=== PATIENT | female | born 1960 | race Caucasian/White ===

== ENCOUNTER → 2018-04-19 | Day surgery (SDC) | payer OTHER ==
--- NOTE | 2018-04-19 10:53 | RAD REPORT ---
EXAM DESCRIPTION: Ultrasound-guided vacuum assisted right breast core biopsy CLINICAL HISTORY: Breast mass R92.8 COMPARISON: Follow Up Breast Axilla Comp dated 03/23/2018; Follow Up Breast Axilla Comp dated 03/23/20 18; 3D DIAG JERO BILAT W/CAD dated 03/23/2018; 3D SCR JERO BILAT W/CAD dated 05/13/2017 FINDINGS: Informed consent was obtained and time-out was performed. The patient's right breast was prepped and draped in the usual sterile fashion. 1% lidocaine was used for local anesthetic purposes. Utilizing aseptic technique and ultrasound guidance, vacuum assisted core biopsy device was used to o btain 2 core specimens through the mass of interest, measuring 3 mm at the 12 o'clock periareolar reg ion. A post biopsy clip was then placed. All collected material was sent for cytology. Patient tolerated procedure well. IMPRESSION: Successful ultrasound guided vacuum assisted right breast mass biopsy.
== END ==
LOC: DS 09:35
PROVIDERS: ATTEND Surgery
PROC: 0HBT3ZX Excision of Right Breast, Percutaneous Approach, Diagnostic (ICD-10-PCS; principal; 2018-04-19)
DX: R92.8 Other abnormal and inconclusive findings on diagnostic imaging of breast (principal)
CPT/HCPCS: 19083; 88305

== ENCOUNTER 2018-08-26 19:29 | Emergency (ER) | payer OTHER ==
[2018-08-26] MEDS ORDERED: NA CHLORIDE 0.9% 500 ML ONE ×2 (20:49→21:49)
[2018-08-26 20:58] LABS: Absolute Neutrophil 11.2 K/uL (1.8-8.0); Basophils % 0.3 % (0-1.3); Hematocrit 47.3 % (36.0-45.0); Lymphocytes % 7.9 % (15.3-44.8); MPV 9.8 fL (7.6-11.3); Monocytes % 7.3 % (3.3-12.3); RBC Red Blood Cell Count 5.41 M/uL (3.86-4.86)
[2018-08-26] MEDS ORDERED: ONDANSETRON 4 MG/2 ML VIAL ONE (21:11)
[2018-08-26] MEDS ORDERED: FAMOTIDINE 20 MG/2 ML VIAL IV ONE (21:12)
[2018-08-26 21:17] LABS: Albumin 3.9 g/dL (3.4-5.0); Bilirubin Direct 0.4 mg/dL (0-0.2); Bilirubin Total 1.7 mg/dL (0.2-1.0); Magnesium 2.2 mg/dL (1.8-2.4); Potassium 3.1 mmol/L (3.5-5.1); Protein, Total 8.6 g/dL (6.4-8.2)
[2018-08-26] MEDS ORDERED: METOCLOPRAMIDE 10 MG/2mL INJ ONE (21:33)
[2018-08-26] MEDS ORDERED: DEXAMETHASONE 10 MG/ML VIAL ONE (21:33)
[2018-08-26] MEDS ORDERED: KETOROLAC 30 MG/ML INJ ONE (21:34)
[2018-08-26] MEDS ORDERED: DIPHENHYDRAMINE 50 MG/ML VIAL ONE (21:34)
[2018-08-26 23:04] LABS: Urine Blood 2+ (NEG); Urine Glucose NEGATIVE (NEG); Urine Protein 3+ (NEG); Urine Specific Gravity >1.030 (1.005-1.030)
[2018-08-26 23:09] LABS: Urine Bacteria <20 /HPF (<20); Urine Culture Reflex Order NOT NEEDED; Urine RBC 20-50 /HPF (NONE SEEN)
--- NOTE | 2018-08-27 00:05 | ER ---
Nurse's Notes [facility] Name: Mandi Stafford Age: 58 yrs Sex: Female : 1960 Arrival Date: 08/26/2018 Time: 19:32 Bed 18 Private MD: Diagnosis: Migraine Presentation: 08/26 19:54 Presenting complaint: Patient states: "I have been sick for 4 days with chills, nausea, jd3 headache, and fever.". Transition of care: patient was not received from another setting of care. Onset of symptoms was August 22, 2018. Risk Assessment: Do you want to hurt yourself or someone else? Patient reports no desire to harm self or others. Initial Sepsis Screen: Does the patient meet any 2 criteria? No. Patient's initial sepsis screen is negative. Does the patient have a suspected source of infection? No. Patient's initial sepsis screen is negative. Care prior to arrival: Medication(s) given: Tylenol, 500 mg. 19:54 Method Of Arrival: Ambulatory jd3 19:54 Acuity: YENI 3 jd3 Triage Assessment: 21:00 Headache History: The patient has had previous headaches and this one is similar to ea previous episodes. General: Appears uncomfortable. General: Behavior is appropriate for age. Pain: Complains of pain in forehead and top of head, neck Pain currently is 10 out of 10 on a pain scale. Pain began 2-3 days ago. Is continuous, Also complains of nausea. Historical: - Allergies: 19:57 No Known Allergies; jd3 - Home Meds: 19:57 Lisinopril Oral [Active]; Crestor oral oral [Active]; Zetia Oral [Active]; sertraline jd3 oral oral [Active]; Metoprolol Tartrate Oral [Active]; - PMHx: 19:57 Hypertension; High Cholesterol; jd3 - PSHx: 19:57 Cholecystectomy; Hysterectomy; jd3 - Immunization history:: Adult Immunizations up to date. - Social history:: Smoking status: Patient/guardian denies using tobacco. - Ebola Screening: : Patient negative for fever greater than or equal to 101.5 degrees Fahrenheit, and additional compatible Ebola Virus Disease symptoms. Screenin:59 Abuse screen: Denies threats or abuse. Nutritional screening: No deficits noted. ea Tuberculosis screening: No symptoms or risk factors identified. Fall Risk None identified. Assessment: 20:38 General: Appears uncomfortable, Behavior is calm, cooperative, appropriate for age. ea Pain: Complains of pain in forehead and top of head. Neuro: Level of Consciousness is awake, alert, obeys commands, Oriented to person, place, time, situation, Speech is normal. Cardiovascular: Patient's skin is warm and dry. Respiratory: Airway is patent Respiratory effort is even, unlabored, Respiratory pattern is regular, symmetrical. GI: Reports nausea. Derm: Skin is pink, warm \\T\\ dry. Musculoskeletal: Circulation, motion, and sensation intact. 21:30 Reassessment: Patient and/or family updated on plan of care and expected duration. Pain ea level reassessed. Patient is alert, oriented x 3, equal unlabored respirations, skin warm/dry/pink. 22:36 Reassessment: Patient and/or family updated on plan of care and expected duration. Pain ea level reassessed. Patient is alert, oriented x 3, equal unlabored respirations, skin warm/dry/pink. Patient states symptoms have improved. 23:18 Reassessment: Patient and/or family updated on plan of care and expected duration. Pain ea level reassessed. Patient is alert, oriented x 3, equal unlabored respirations, skin warm/dry/pink. 08/27 00:03 Reassessment: Patient and/or family updated on plan of care and expected duration. Pain ea level reassessed. Pt resting with eyes closed, respirations even and unlabored. Chest expansions even and symmetrical. No s/s of pain or discomfort noted at this time. 00:11 Reassessment: Patient and/or family updated on plan of care and expected duration. Pain ea level reassessed. Patient is alert, oriented x 3, equal unlabored respirations, skin warm/dry/pink. Discharge instructions given to patient, verbalized the understanding of isntruction Patient states feeling better. Patient states symptoms have improved. Vital Signs: 08/26 19:57 BP 139 / 86; Pulse 97; Resp 18 S; Temp 98.8(O); Pulse Ox 95% on R/A; Weight 79.38 kg jd3 (R); Height 5 ft. 7 in. (170.18 cm) (R); Pain 9/10; 20:30 BP 149 / 88; Pulse 71; Resp 16; Pulse Ox 98% on R/A; ea 21:00 BP 150 / 74; Pulse 62; Resp 18; Pulse Ox 97% on R/A; ea 22:45 BP 135 / 82; Pulse 76; Resp 18; Pulse Ox 100% ; ea 23:18 BP 128 / 67; Pulse 65; Resp 18; Pulse Ox 96% on R/A; ea 19:57 Body Mass Index 27.41 (79.38 kg, 170.18 cm) jd3 ED Course: 19:32 Patient arrived in ED. mr 19:55 Triage completed. jd3 19:58 Arm band placed on. jd3 20:09 Adonis Gross PA is PHCP. cp 20:09 Guero Gamble MD is Attending Physician. cp 20:22 Keke Crowley RN is Primary Nurse. ea 20:30 Inserted saline lock: 22 gauge in right antecubital area, using aseptic technique. ea Blood collected. 20:59 Patient has correct armband on for positive identification. Bed in low position. Call ea light in reach. Side rails up X 1. 08/27 00:12 No provider procedures requiring assistance completed. IV discontinued, intact, ea bleeding controlled, No redness/swelling at site. Pressure dressing applied. Administered Medications: 08/26 20:47 Drug: NS 0.9% 500 ml Route: IV; Rate: bolus; Site: right antecubital; ea 21:35 Follow up: Response: No adverse reaction; IV Status: Completed infusion; IV Intake: ea 500ml 21:06 Drug: Pepcid 20 mg Route: IVP; Site: right antecubital; ea 21:41 Follow up: Response: No adverse reaction ea 21:07 Drug: Zofran 4 mg Route: IVP; Site: right antecubital; ea 21:40 Follow up: Response: No adverse reaction ea 21:40 Drug: Decadron - Dexamethasone 10 mg Route: IVP; Site: right antecubital; ea 22:25 Follow up: Response: No adverse reaction; Marked relief of symptoms ea 21:40 Drug: TORadol 30 mg Route: IVP; Site: right antecubital; ea 22:25 Follow up: Response: No adverse reaction; Marked relief of symptoms ea 21:40 Drug: Benadryl 25 mg Route: IVP; Site: right antecubital; ea 22:26 Follow up: Response: No adverse reaction; Marked relief of symptoms ea 21:41 Drug: Reglan 10 mg Route: IVP; Site: right antecubital; ea 22:25 Follow up: Response: No adverse reaction; Marked relief of symptoms ea 21:44 Drug: NS 0.9% 500 ml Route: IV; Rate: bolus; Site: right antecubital; ea 22:25 Follow up: Response: No adverse reaction; IV Status: Completed infusion; IV Intake: ea 500ml Intake: 21:35 IV: 500ml; Total: 500ml. ea 22:25 IV: 500ml; Total: 1000ml. ea Outcome: 08/27 00:04 Discharge ordered by . ps1 00:12 Condition: improved ea 00:12 Discharge instructions given to patient, Instructed on discharge instructions, follow up and referral plans. Demonstrated understanding of instructions, follow-up care. 00:28 Discharged to home ambulatory. ea 00:38 Patient left the ED. ea Signatures: Damaris Laureano Corey, PA PA cp Antunez, Elena, RN RN ea Davies, Jonathon, RN RN Guero Toscano MD MD ps1
--- NOTE | 2018-08-27 00:06 | EDPHYS ---
Physician Documentation [facility] Name: Mandi Stafford Age: 58 yrs Sex: Female : 1960 Arrival Date: 08/26/2018 Time: 19:32 Bed 18 Private MD: ED Physician Guero Gamble HPI: 08/26 20:25 This 58 yrs old Female presents to ER via Ambulatory with complaints of cp Headache, Nausea, chills. 20:25 The patient complains of pain to the top of head and forehead. cp 20:25 The patient describes the headache as aching. cp 20:25 Onset: The symptoms/episode began/occurred 4 day(s) ago. Associated signs and symptoms: cp Pertinent positives: nausea, Photophobia vomiting, Pertinent negatives: sinus congestion, sinus tenderness, weakness. Severity of symptoms: in the emergency department the pain is unchanged, despite home interventions. Headache History: The patient has had previous headaches and this one is similar to previous episodes. Historical: - Allergies: 19:57 No Known Allergies; jd3 - Home Meds: 19:57 Lisinopril Oral [Active]; Crestor oral oral [Active]; Zetia Oral [Active]; sertraline jd3 oral oral [Active]; Metoprolol Tartrate Oral [Active]; - PMHx: 19:57 Hypertension; High Cholesterol; jd3 - PSHx: 19:57 Cholecystectomy; Hysterectomy; jd3 - Immunization history:: Adult Immunizations up to date. - Social history:: Smoking status: Patient/guardian denies using tobacco. - Ebola Screening: : Patient negative for fever greater than or equal to 101.5 degrees Fahrenheit, and additional compatible Ebola Virus Disease symptoms. ROS: 20:30 Constitutional: Positive for chills, Negative for fever. cp 20:30 Eyes: Negative for injury, pain, redness, and discharge. cp 20:30 ENT: Negative for drainage from ear(s), ear pain, sore throat, difficulty swallowing, difficulty handling secretions. 20:30 Cardiovascular: Negative for chest pain, edema, palpitations. 20:30 Respiratory: Negative for cough, shortness of breath, wheezing. 20:30 Abdomen/GI: Positive for nausea and vomiting, Negative for abdominal pain, diarrhea, constipation. 20:30 Back: Negative for pain at rest, pain with movement, radiated pain. 20:30 : Negative for urinary symptoms, flank pain. 20:30 Skin: Negative for cellulitis, rash. 20:30 Neuro: Positive for headache, Negative for altered mental status, dizziness, weakness. 20:30 All other systems are negative. Exam: 20:35 Constitutional: The patient appears in no acute distress, alert, awake, non-toxic, well cp developed, well nourished. 20:35 Head/Face: Normocephalic, atraumatic. cp 20:35 Eyes: Periorbital structures: appear normal, Pupils: equal, round, and reactive to light and accomodation, Extraocular movements: intact throughout, Conjunctiva: normal, no exudate, no injection, Sclera: no appreciated abnormality, Lids and lashes: appear normal, bilaterally. 20:35 ENT: External ear(s): are unremarkable, Ear canal(s): are normal, clear, TM's: bulging, is not appreciated, bilaterally, dullness, bilaterally, erythema, is not appreciated, bilaterally, Nose: is normal, Mouth: Lips: moist, Oral mucosa: pink and intact, moist, Posterior pharynx: Airway: no evidence of obstruction, patent, Tonsils: are normal in appearance, Uvula: midline, swelling, is not appreciated, erythema, is not appreciated, exudate, is not appreciated, Voice: is normal. 20:35 Neck: ROM/movement: limited range of motion, is not appreciated, Meningeal signs: Kernig's sign is negative, Brudzinski's sign is negative, nuchal rigidity, is not appreciated, Lymph nodes: no appreciated lymphadenopathy. 20:35 Chest/axilla: Inspection: normal, Palpation: is normal, no crepitus, no tenderness. 20:35 Cardiovascular: Rate: normal, Rhythm: regular. 20:35 Respiratory: the patient does not display signs of respiratory distress, Respirations: normal, no use of accessory muscles, no retractions, no splinting, no tachypnea, labored breathing, is not present, Breath sounds: are clear throughout, no decreased breath sounds, no stridor, no wheezing. 20:35 Abdomen/GI: Inspection: abdomen appears normal, Bowel sounds: active, all quadrants, Palpation: abdomen is soft and non-tender, in all quadrants, rebound tenderness, is not appreciated, voluntary guarding, is not appreciated, involuntary guarding, is not appreciated. 20:35 Back: pain, is absent, ROM is normal. 20:35 Skin: cellulitis, is not appreciated, no rash present. 20:35 Neuro: Orientation: to person, place \T\ time. Mentation: is normal, Cerebellar function: is grossly normal, Motor: moves all fours, strength is normal, Sensation: is normal. Vital Signs: 19:57 BP 139 / 86; Pulse 97; Resp 18 S; Temp 98.8(O); Pulse Ox 95% on R/A; Weight 79.38 kg jd3 (R); Height 5 ft. 7 in. (170.18 cm) (R); Pain 9/10; 20:30 BP 149 / 88; Pulse 71; Resp 16; Pulse Ox 98% on R/A; ea 21:00 BP 150 / 74; Pulse 62; Resp 18; Pulse Ox 97% on R/A; ea 22:45 BP 135 / 82; Pulse 76; Resp 18; Pulse Ox 100% ; ea 23:18 BP 128 / 67; Pulse 65; Resp 18; Pulse Ox 96% on R/A; ea 19:57 Body Mass Index 27.41 (79.38 kg, 170.18 cm) jd3 MDM: 20:09 Patient medically screened. cp 20:45 Differential diagnosis: cluster headache, meningitis, meningoencephalitis, migraine, cp sinusitis, subarachnoid bleed, subdural hematoma, tension headache. 08/27 03:39 Data reviewed: vital signs, nurses notes. ps1 08/26 20:20 Order name: Influenza Screen (a \T\ B); Complete Time: 21:18 cp 08/26 20:20 Order name: Strep; Complete Time: 21:18 cp 08/26 20:20 Order name: Urine Microscopic Only; Complete Time: 00:00 cp 08/26 20:20 Order name: Basic Metabolic Panel; Complete Time: 21:18 cp 08/26 21:19 Interpretation: Normal except: NA 131; K 3.1; CL 94; GLUC 139; GFR 56. cp 08/26 20:20 Order name: CBC with Diff; Complete Time: 21:03 cp 08/26 21:03 Interpretation: Normal except: WBC 13.3; RBC 5.41; HGB 16.3; HCT 47.3; MCV 87.5; SHERI% cp 84.5; LYM% 7.9; NEUT A 11.2. 08/26 20:20 Order name: Creatinine for Radiology; Complete Time: 21:18 cp 08/26 20:20 Order name: Hepatic Function; Complete Time: 21:18 cp 08/26 21:19 Interpretation: Normal except: BILIT 1.7; BILID 0.4; TP 8.6; GLOB 4.7; A/G 0.8. cp 08/26 20:20 Order name: Lipase; Complete Time: 21:18 cp 08/26 20:20 Order name: Magnesium; Complete Time: 21:18 cp 08/26 21:04 Order name: Throat Culture EDMS 08/26 22:37 Order name: Urine Dipstick--Ancillary (enter results); Complete Time: 00:00 gm 08/26 22:37 Order name: Urine --Ancillary (enter results); Complete Time: 00:00 gm 08/26 20:20 Order name: Urine Dipstick-Ancillary (obtain specimen); Complete Time: 22:35 cp 08/26 20:20 Order name: IV Saline Lock; Complete Time: 20:38 cp 08/26 20:20 Order name: Labs collected and sent; Complete Time: 20:58 cp Administered Medications: 08/26 20:47 Drug: NS 0.9% 500 ml Route: IV; Rate: bolus; Site: right antecubital; ea 21:35 Follow up: Response: No adverse reaction; IV Status: Completed infusion; IV Intake: ea 500ml 21:06 Drug: Pepcid 20 mg Route: IVP; Site: right antecubital; ea 21:41 Follow up: Response: No adverse reaction ea 21:07 Drug: Zofran 4 mg Route: IVP; Site: right antecubital; ea 21:40 Follow up: Response: No adverse reaction ea 21:40 Drug: Decadron - Dexamethasone 10 mg Route: IVP; Site: right antecubital; ea 22:25 Follow up: Response: No adverse reaction; Marked relief of symptoms ea 21:40 Drug: TORadol 30 mg Route: IVP; Site: right antecubital; ea 22:25 Follow up: Response: No adverse reaction; Marked relief of symptoms ea 21:40 Drug: Benadryl 25 mg Route: IVP; Site: right antecubital; ea 22:26 Follow up: Response: No adverse reaction; Marked relief of symptoms ea 21:41 Drug: Reglan 10 mg Route: IVP; Site: right antecubital; ea 22:25 Follow up: Response: No adverse reaction; Marked relief of symptoms ea 21:44 Drug: NS 0.9% 500 ml Route: IV; Rate: bolus; Site: right antecubital; ea 22:25 Follow up: Response: No adverse reaction; IV Status: Completed infusion; IV Intake: ea 500ml Disposition: 08/27 03:38 Co-signature as Attending Physician, Guero Gamble MD Available for consultation at ps1 all times . Disposition: 08/27/18 00:04 Discharged to Home. Impression: Migraine. - Condition is Stable. - Discharge Instructions: Migraine Headache. - Medication Reconciliation Form, Thank You Letter, Antibiotic Education, Prescription Opioid Use form. - Follow up: Private Physician; Reason: Further diagnostic work-up, Recheck today's complaints, Continuance of care. Follow up: Emergency Department; When: As needed; Reason: Fever > 102 F, Worsening of condition. - Problem is an acute exacerbation. - Symptoms have improved. Signatures: Dispatcher [employer] EDMS Adonis Gross PA PA cp Antunez, Elena, RN RN ea Davies, Jonathon, RN RN jd3 Singer, Phillip, MD MD ps1 Corrections: (The following items were deleted from the chart) 00:38 00:04 08/27/2018 00:04 Discharged to Home. Impression: Migraine. Condition is Stable. ea Forms are Medication Reconciliation Form, Thank You Letter, Antibiotic Education, Prescription Opioid Use. Follow up: Private Physician; Reason: Further diagnostic work-up, Recheck today's complaints, Continuance of care. Follow up: Emergency Department; When: As needed; Reason: Fever > 102 F, Worsening of condition. Problem is an acute exacerbation. Symptoms have improved. ps1
== END 2018-08-27 00:38 | disposition home or self-care (01) ==
LOC: ER 19:29
DX: G43.909 Migraine, unspecified, not intractable, without status migrainosus (principal); I10 Essential (primary) hypertension; E78.00 Pure hypercholesterolemia, unspecified
CPT/HCPCS: 36415; 80048; 80076; 81003; 81015; 81025; 83690; 83735; 85025; 87070; 87081; 87804; J1100; J2405; J2765

== ENCOUNTER → 2023-09-21 | Emergency (ER) | payer MEDICARE, OTHER ==
[~2023-09-21] MED LIST: HYDROCODONE/APAP 7.5/325 MG TAB ONE; LIDOCAINE HCL JELLY 2% 6 ML SYRINGE TOP ONE; TDAP (DIPHTH,PERTUSS(ACELL),TET VAC) 0.5 ML VIAL IMVAC ONE
--- NOTE | 2023-09-21 22:06 | RAD REPORT ---
EXAM DESCRIPTION: CT - Head Brain Wo Cont - 09/21/2023 10:00 pm CLINICAL HISTORY: TRAUMA Trauma, fall, head injury COMPARISON: Facial Bones W/ Mpr dated 09/21/2023 TECHNIQUE: All CT scans are performed using dose optimization technique as appropriate and may inclu de automated exposure control or mA/KV adjustment according to patient size. FINDINGS: No intracranial hemorrhage, hydrocephalus or extra-axial fluid collection.No areas of brai n edema or evidence of midline shift. The paranasal sinuses and mastoids are clear. The calvarium is intact. IMPRESSION: No acute intracranial abnormality.
--- NOTE | 2023-09-21 22:10 | RAD REPORT ---
EXAM DESCRIPTION: CT - CTFB CLINICAL HISTORY: FACIAL PAIN Trauma, facial pain. COMPARISON: No comparisons TECHNIQUE: Axial 2 mm thick images of the face were obtained with sagittal and coronal reconstructio n images. All CT scans are performed using dose optimization technique as appropriate and may include automated exposure control or mA/KV adjustment according to patient size. FINDINGS: No acute facial bone fracture is seen.The mandible is intact. The globes and orbital contents are grossly unremarkable.The paranasal sinuses and mastoids are clear . Small anterior scalp hematoma. IMPRESSION: Negative for facial bone fracture.
--- NOTE | 2023-09-21 22:13 | ER ---
Nurse's Notes [facility] Name: Mandi Stafford Age: 63 yrs Sex: Female : 1960 Arrival Date: 09/21/2023 Time: 21:08 Bed 20 Private MD: Diagnosis: Unspecified injury of head, initial encounter;Abrasion of nose;Abrasion of lower leg-knee Presentation: 09/21 21:20 Chief complaint: Patient states: FALL ONTO FACE \R\5 FT, NO LOC. Coronavirus screen: At bp this time, the client does not indicate any symptoms associated with coronavirus-19. Ebola Screen: No symptoms or risks identified at this time. Initial Sepsis Screen: Does the patient meet any 2 criteria? No. Patient's initial sepsis screen is negative. Does the patient have a suspected source of infection? No. Patient's initial sepsis screen is negative. Risk Assessment: Do you want to hurt yourself or someone else? Patient reports no desire to harm self or others. Onset of symptoms was September 21, 2023 at 19:00. 21:20 Method Of Arrival: Ambulatory bp 21:20 Acuity: YENI 3 bp Triage Assessment: 21:21 General: Appears in no apparent distress. Behavior is calm, cooperative, appropriate bp for age. Pain: Complains of pain in face and right knee. Historical: - Allergies: 21:21 No Known Allergies; bp - PMHx: 21:21 High Cholesterol; Hypertension; bp - Immunization history:: Adult Immunizations up to date. - Social history:: Smoking status: Patient denies any tobacco usage or history of. Screenin:30 [facility] ED Fall Risk Assessment (Adult) History of falling in the last 3 months, jw7 including since admission Yes- single mechanical fall (1 pt) Confusion or Disorientation No (0 pts) Intoxicated or Sedated No (0 pts) Impaired Gait No (0 pts) Mobility Assist Device Used No (0 pt) Altered Elimination No (0 pt) Score/Fall Risk Level 0 - 2 = Low Risk Oriented to surroundings, Maintained a safe environment, Educated pt \T\ family on fall prevention, incl call for assistance when getting out of bed. Abuse screen: Denies threats or abuse. Denies injuries from another. Nutritional screening: No deficits noted. Tuberculosis screening: No symptoms or risk factors identified. Assessment: 21:30 General: Appears in no apparent distress. comfortable, Behavior is calm, cooperative. jw7 Pain: Complains of pain in forehead and nose and right leg and face and right knee Pain does not radiate. Pain currently is 3 out of 10 on a pain scale. Quality of pain is described as burning, stinging, Pain began suddenly, Is continuous. Neuro: Level of Consciousness is awake, alert, obeys commands, Oriented to person, place, time, situation. Cardiovascular: Capillary refill < 3 seconds Patient's skin is warm and dry. Respiratory: Airway is patent Trachea midline Respiratory effort is even, unlabored, Respiratory pattern is regular, symmetrical. GI: Abdomen is round non-distended, Bowel sounds present X 4 quads. : No deficits noted. No signs and/or symptoms were reported regarding the genitourinary system. EENT: No deficits noted. No signs and/or symptoms were reported regarding the EENT system. Derm: Skin is healthy with good turgor, Skin is dry, Skin is normal, Skin temperature is warm Wound noted nose and right knee Wound is Scrape to bridge of nose and right knee due to fall. Musculoskeletal: Circulation, motion, and sensation intact. Range of motion: intact in all extremities. 22:41 Reassessment: Patient appears in no apparent distress at this time. Patient and/or jw7 family updated on plan of care and expected duration. Pain level reassessed. Patient is alert, oriented x 3, equal unlabored respirations, skin warm/dry/pink. Patient states feeling better. Patient states symptoms have improved. Vital Signs: 21:20 BP 119 / 65; Pulse 80; Resp 16; Temp 98; Pulse Ox 97% ; Weight 83.91 kg; Height 5 ft. 7 bp in. ; 22:00 BP 133 / 95; Pulse 78; Resp 16 S; Pulse Ox 99% on R/A; jw7 21:20 Body Mass Index 28.97 (83.91 kg, 170.18 cm) bp Albert Coma Score: 21:43 Eye Response: spontaneous(4). Motor Response: obeys commands(6). Verbal Response: kb oriented(5). Total: 15. ED Course: 21:14 Patient arrived in ED. gm2 21:15 [facility] kb 21:15 Talat White MD is Attending Physician. kb 21:16 Jaxon Rich, RN is Primary Nurse. bp 21:21 Triage completed. bp 21:21 Arm band placed on. bp 21:30 Patient has correct armband on for positive identification. Bed in low position. Call jw7 light in reach. 21:34 Amie Barnett, RN is Primary Nurse. jw7 22:02 CT Head Brain wo Cont In Process Unspecified. EDMS 22:03 CT Facial Bones W/O Con In Process Unspecified. EDMS 22:42 No provider procedures requiring assistance completed. Patient did not have IV access jw7 during this emergency room visit. 22:43 Provided Education on: Discharge instructions. jw7 Administered Medications: 21:50 Drug: Boostrix Tdap IM 0.5 ml IM once; as a single dose Route: IM; Site: left deltoid; jw7 22:44 Follow up: Response: No adverse reaction jw7 21:50 Drug: Hydrocodone-Acetaminophen PO (7.5 mg-325 mg) 1 tabs PO once Route: PO; jw7 22:43 Follow up: Response: No adverse reaction; Marked relief of symptoms jw7 22:18 Drug: Lidocaine Mucous Membrane Gel 2 % 1 application Mucous Membrane once Route: jw7 Mucous Membrane; 22:43 Follow up: Response: No adverse reaction; Marked relief of symptoms jw7 Medication: 22:45 Vaccine Information Statement (VIS) provided today. Questions and/or concerns jw7 addressed. VIS edition date: March 13, 2021. Outcome: 22:13 Discharge ordered by . kb 22:42 Discharged to home ambulatory, jw7 22:42 Condition: stable 22:42 Discharge instructions given to patient, Instructed on discharge instructions, follow up and referral plans. Demonstrated understanding of instructions, follow-up care, 22:46 Patient left the ED. jw7 Signatures: Dispatcher [employer] EDMS Nguyen Antoine, MARIE-Bisi PULLER OUT-Jaxon Garza, ENOCH RN Amie Singh RN RN Arlette Currie 2 Corrections: (The following items were deleted from the chart) 22:46 22:43 VIS not applicable for this client. jw7 jw7
--- NOTE | 2023-09-21 22:13 | EDPHYS ---
Physician Documentation [facility] Name: Mandi Stafford Age: 63 yrs Sex: Female : 1960 Arrival Date: 09/21/2023 Time: 21:08 Bed 20 Private MD: ED Physician Talat White HPI: 09/21 21:44 This 63 yrs old Female presents to ER via Ambulatory with complaints of Facial Injury, kb Head Injury-Adult. 21:44 Patient is a 63-year-old female who fell off of a porch onto concrete hitting her kb forehead and nose. Denies LOC. Ambulates with steady gait. Denies any other injuries or pain.. Historical: - Allergies: 21:21 No Known Allergies; bp - PMHx: 21:21 High Cholesterol; Hypertension; bp - Immunization history:: Adult Immunizations up to date. - Social history:: Smoking status: Patient denies any tobacco usage or history of. ROS: 21:42 Constitutional: Negative for fever, chills, and weight loss, kb 21:42 Skin: Positive for abrasion(s), of the nose and right knee, 21:43 Skin: Positive for hematoma, of the forehead, kb 21:43 All other systems are negative, Exam: 21:43 Constitutional: This is a well developed, well nourished patient who is awake, alert, kb and in no acute distress. ENT: Moist Mucous membranes Cardiovascular: Regular rate Respiratory: Respirations even and unlabored. No increased work of breathing. Talking in full sentences Abdomen/GI: Soft, non-tender. No distention Back: No spinal tenderness. No costovertebral tenderness. Full range of motion. MS/ Extremity: Pulses equal, no cyanosis. Neurovascular intact. Full, normal range of motion. Neuro: Awake and alert, GCS 15, oriented to person, place, time, and situation. Moves all extremities. Normal gait. 21:43 Head/face: Noted is no obvious of injury or deformity except hematoma, that is moderate, of the forehead, 21:43 Skin: injury, abrasion(s), small abrasion noted, moderate sized abrasion noted, of the nose and right knee, very small abrasion on right hand, Vital Signs: 21:20 BP 119 / 65; Pulse 80; Resp 16; Temp 98; Pulse Ox 97% ; Weight 83.91 kg; Height 5 ft. 7 bp in. ; 22:00 BP 133 / 95; Pulse 78; Resp 16 S; Pulse Ox 99% on R/A; jw7 21:20 Body Mass Index 28.97 (83.91 kg, 170.18 cm) bp Albert Coma Score: 21:43 Eye Response: spontaneous(4). Motor Response: obeys commands(6). Verbal Response: kb oriented(5). Total: 15. MDM: 21:15 Patient medically screened. kb 21:43 Differential diagnosis: Contusion of Hematoma on Laceration of Intracranial bleed-. kb Data reviewed: vital signs, nurses notes. 22:12 Counseling: I had a detailed discussion with the patient and/or guardian regarding the kb historical points, exam findings, and any diagnostic results supporting the discharge/admit diagnosis, radiology results, the need for outpatient follow up, a family practitioner, to return to the emergency department if symptoms worsen or persist or if there are any questions or concerns that arise at home. 09/21 21:19 Order name: CT Head Brain wo Cont; Complete Time: 22:12 kb 09/21 21:19 Order name: CT Facial Bones W/O Con; Complete Time: 22:12 kb 09/21 22:18 Order name: Ice pack; Complete Time: 22:18 kb Administered Medications: 21:50 Drug: Boostrix Tdap IM 0.5 ml IM once; as a single dose Route: IM; Site: left deltoid; jw7 22:44 Follow up: Response: No adverse reaction jw7 21:50 Drug: Hydrocodone-Acetaminophen PO (7.5 mg-325 mg) 1 tabs PO once Route: PO; jw7 22:43 Follow up: Response: No adverse reaction; Marked relief of symptoms jw7 22:18 Drug: Lidocaine Mucous Membrane Gel 2 % 1 application Mucous Membrane once Route: jw7 Mucous Membrane; 22:43 Follow up: Response: No adverse reaction; Marked relief of symptoms jw7 Disposition: 09/22 04:05 Co-signature as Attending Physician, Talat White MD I agree with the assessment sp4 and plan of care. I reviewed the patient's care provided by the Advanced Practice Provider and agree with the diagnosis and treatment plan. Disposition Summary: 09/21/23 22:13 Discharge Ordered Notes: Location: Home kb Condition: Stable kb Diagnosis - Unspecified injury of head, initial encounter kb - Abrasion of nose kb - Abrasion of lower leg - knee kb Followup: kb - With: Emergency Department - When: As needed - Reason: Worsening of condition Followup: kb - With: Private Physician - When: 2 - 3 days - Reason: Recheck today's complaints, Continuance of care, Re-evaluation by your physician Discharge Instructions: - Discharge Summary Sheet kb - Hematoma, [id number] kb - Abrasion, [id number] kb - Head Injury, Adult, [id number] kb Forms: - Medication Reconciliation Form kb - Thank You Letter kb - Antibiotic Education kb - Prescription Opioid Use kb - Patient Portal Instructions kb - Leadership Thank You Letter kb Signatures: Dispatcher [employer] EDMS Nguyen Antoine, MALT SPECIFICATIONS CONTROL ASSISTANT-C MALT SPECIFICATIONS CONTROL ASSISTANT-Jaxon Garza, RN RN Amie Singh RN RN jw7 Talat White MD MD sp4
[2023-09-21 23:15] VITALS: BP 133/95; TEMP 98; O2SAT 99
== END ==
LOC: ER 21:08
DX: S00.83XA Contusion of other part of head, initial encounter (principal); S00.31XA Abrasion of nose, initial encounter; S80.211A Abrasion, right knee, initial encounter; S60.511A Abrasion of right hand, initial encounter; W17.89XA Other fall from one level to another, initial encounter
CPT/HCPCS: 70450; 70486; 76377